=== PATIENT | male | born 1990 | race Caucasian/White ===

== ENCOUNTER 2021-02-03 14:35 | Outpatient (CLI) | payer OTHER, SELFPAY ==
--- NOTE | 2021-02-03 14:46 | ECHO_ITS ---
Patient Info Name: Himanshu Nunez Age: 30 years : 1990 Gender: Male Ht: 64 in Wt: 187 lbs BSA: 1.99 m2 HR: 84 bpm BP: 131 / 74 mmHg Technical Quality: Good Exam Date: 02/03/2021 2:52 PM Exam Location: [facility] Patient Status: Outpatient Admit Date: 02/03/2021 Staff Ordering Physician: Gideon Massey DO Electronic Console Display Operator: Ct Taveras RDCS Attending Provider: Gideon Massey DO Referring Physician: Shilpa KINSEY; Exam Type: CA echo doppler color flow Study Info Indications R00.2 - Palpitations Complete two-dimensional, color flow and Doppler transthoracic echocardiogram is performed. Summary 1. Complete two-dimensional, color flow and Doppler transthoracic echocardiogram is performed. 2. Left ventricular chamber dimension is normal. 3. Left ventricular systolic function is normal, estimated at 60-65%. 4. The left ventricular diastolic function is normal. 5. E/e' 5 is not elevated. 6. There is trace mitral valve regurgitation. 7. There is trace tricuspid valve regurgitation. 8. No pulmonary hypertension, estimated pulmonary arterial systolic pressure is 29 mmHg. Left Ventricle E/e' 5 is not elevated. Left ventricular chamber dimension is normal. Left ventricular systolic function is normal, estimated at 60-65%. The left ventricular diastolic function is normal. Right Ventricle Right ventricular chamber dimension is normal. Right ventricular systolic function is normal. Left Atria Left atrial chamber dimension is normal. Right Atria Right atrial chamber dimension is normal. Aortic Valve The aortic valve is trileaflet. There is no aortic valve stenosis. There is no aortic valve regurgitation. Pulmonic Valve There is no pulmonic regurgitation. Mitral Valve There is no mitral valve stenosis. There is trace mitral valve regurgitation. Tricuspid Valve There is trace tricuspid valve regurgitation. No pulmonary hypertension, estimated pulmonary arterial systolic pressure is 29 mmHg. Pericardium/Pleural There is no pericardial effusion. Inferior Vena Cava Normal inferior vena cava with >50% collapse upon inspiration consistent with normal right atrial pressure, 5 mmHg. Aorta The aortic root size at the sinus of Valsalva is normal. Left Ventricular Outflow Tract Name Value Normal LVOT 2D LVOT Diameter 2.1 cm LVOT Doppler LVOT Peak Gradient 5 mmHg LVOT Mean Gradient 3 mmHg LVOT VTI 21 cm LVOT VTI/AV VTI Ratio 1.0 LVOT Stroke Volume 73 ml LVOT CO 17.3 l/min LVOT CI 8.7 l/min/m2 Pulmonic Valve Name Value Normal PV Doppler PV Peak Gradient 3 mmHg
--- NOTE | 2021-02-08 12:39 | WPDHOLTEREM ---
Holter/Event Monitor Holter/Event Monitor Date of procedure: 02/03/21 Procedure Type: 48 hour holter monitor Indications: Palpitations Conclusion: 1. 48 hour holter monitor on 02/03/21. 2. Underlying rhythm is sinus rhythm. HR range 39-130 bpm; average HR 76 bpm. 3. There are 2 premature supraventricular complexes and 1 supraventricular couplet. No supraventricular tachycardia. 4. There are 16,883 premature ventricular complexes, 11 ventricular couplets, 45 ventricular bigeminy, 853 ventricular trigeminy. No ventricular tachycardia. 5. No sinoatrial or atrioventricular blocks. No significant pauses greater than 2 seconds. 6. Patient reports symptoms of palpitations, shortness of breath, chest pain which demonstrate sinus rhythm, HR range 75-91 with PVC's except for one episode without PVC.
== END 2021-02-03 14:36 | disposition home or self-care (01) ==
PROVIDERS: PCP Internal Medicine; Visit Provider Internal Medicine
DX: R00.2 Palpitations (principal)
CPT/HCPCS: 93225; 93226; 93306